=== PATIENT | male | born 1995 | race Caucasian/White ===

== ENCOUNTER 2017-10-18 13:53 | Observation (INO) ==
[2017-10-18] MEDS ORDERED: Ondansetron 4 MG/2 ML VIAL IVP ONE (14:13)
[2017-10-18] MEDS ORDERED: 0.9 % Sodium Chloride 1,000 ML IV SCH ×2 (14:15)
--- NOTE | 2017-10-18 14:29 | Emergency Department Note ---
Disposition Clinical Impression: Dehydration Diabetic ketoacidosis Qualifiers: Diabetes mellitus type: type 1 Diabetes mellitus complication detail: without coma Qualified Code(s): E10.10 - Type 1 diabetes mellitus with ketoacidosis without coma Disposition: Admitted As Inpatient Condition: Good Forms: ED Satisfaction Letter Nausea/Vomiting/Diarrhea HPI - General Chief complaint: ED Nausea/Vomiting/Diarrhea Stated complaint: "n/v,weak,high blood sugar/type 1 diabetes" Time Seen by Provider: 10/18/17 14:00 Source: patient, family Mode of arrival: private vehicle Limitations: no limitations Nursing Notes Reviewed: Yes Vital Signs Reviewed: Yes - History of Present Illness HPI Narrative: 22-year-old male history of type 1 diabetes who presents to the ER with a complaint of nausea vomiting and hyperglycemia. Mother reports 2 days of symptoms of nausea as well as inability to keep anything down. Reports that his sugar has been running over 600. Denies any recent illnesses. No fevers, cough, shortness of breath, dysuria or hematuria. No abdominal pain. No sick contacts. They have been correcting at home and still remains hyperglycemic. Reports he has never been in DKA aside from when he was originally diagnosed age of 5. No other complaints. Pt Subjective Complaint: nausea, vomiting Onset (ago): day(s) Improves with: nothing Worsens with: nonthing Associated symptoms: Reports: nausea/vomiting - Related Data Home Medications Medication Instructions Recorded Confirmed Subcutaneous Insulin Pump [T:Slim] 1 each MC AD 10/18/17 10/18/17 Allergies Allergy/AdvReac Type Severity Reaction Status Date / Time No Known Allergies Allergy Verified 10/18/17 15:00 All systems ED: reviewed and negative except as stated. Constitutional: Denies: fever Respiratory: Denies: cough, dyspnea Gastrointestinal: Reports: nausea, vomiting. Denies: abdominal pain, diarrhea Genitourinary: Denies: dysuria, frequency, hematuria Past Medical History - Past Medical History Attestation: Yes The following information was validated with the patient. Source: patient Medical history: Reports: diabetes Psychiatric history: Reports: no psych history - Social History Smoking Status: Never smoker Smokeless Tobacco Status: No Alcohol use: Reports: none Drug use: Reports: none Physical Exam - General Limitations: no limitations General appearance: alert, in no apparent distress - Head Head exam: atraumatic, normocephalic - Eye Eye exam: Present: normal appearance - ENT ENT exam: normal exam - Neck Neck exam: Present: normal inspection - Chest Chest inspection: Present: normal inspection, symmetric chest wall rise - Respiratory Respiratory exam: Present: normal lung sounds bilaterally - Cardiovascular Cardiovascular exam: Present: normal rhythm, tachycardia, normal heart sounds - Abdominal Exam Abdominal exam: Present: soft, Non-Tender. Absent: tenderness, distention, rigidity - Extremities Exam Extremities exam: Present: normal inspection, full ROM - Expanded Upper Extremity Exam Shoulder exam: Present: normal inspection, full ROM Arm exam: Present: normal inspection, full ROM Elbow exam: Present: normal inspection, full ROM Forearm/Wrist exam: Present: normal inspection, full ROM Hand exam: Present: normal inspection, full ROM - Expanded Lower Extremity Exam Hip/Pelvis exam: Present: normal inspection, full ROM Upper leg exam: Present: normal inspection, full ROM Knee exam: Present: normal inspection, full ROM Lower leg exam: Present: normal inspection, full ROM Ankle exam: Present: normal inspection, full ROM Foot/toe exam: Present: normal inspection, full ROM - Skin Skin exam: Present: warm, dry Course Course Narrative: Patient seen and examined. Vital signs reviewed. Plan for evaluation for DKA. 2 L IV fluids ordered. EKG for his tachycardia. Zofran for nausea and vomiting. - Reevaluation(s) Reevaluation #1: Discussed results of lab work with the patient's family. Resting comfortably at this time. Heart rate has improved. Agreeable with admission. Vital Signs Temperature 97.8 F 10/18/17 13:56 Pulse Rate 150 10/18/17 13:56 Respiratory Rate 18 10/18/17 13:56 Blood Pressure 154/95 10/18/17 13:56 O2 Sat by Pulse Oximetry 98 10/18/17 13:56 Temperature 97.8 F 10/18/17 14:11 Pulse Rate 150 10/18/17 14:11 Respiratory Rate 18 10/18/17 14:11 Blood Pressure 154/95 10/18/17 14:11 O2 Sat by Pulse Oximetry 98 10/18/17 14:11 Oxygen Delivery Oxygen Delivery Room Air Nausea/Vomiting/Diarrhea - MDM Narrative Medical decision making narrative: 22-year-old male presents in DKA. Hyperglycemic here with an anion gap of 13 with acidosis of 7.22. No source of infectious etiology. Initially tachycardic improved with hydration. Patient was started on insulin drip as well as dextrose containing maintenance fluids with potassium supplementation. He is admitted to the hospital service in stable condition. - Lab Data Lab results reviewed: Yes I reviewed the patient's lab results. Result diagrams: 10/18/17 14:23 10/18/17 14:23 Lab Results 10/18/17 10/18/17 10/18/17 Range/Units 14:23 14:23 14:23 WBC 23.6 H (4.3-11.1) K/mcL RBC 5.66 H (4.19-5.50) M/mcL Hgb 17.9 H (12.9-16.9) g/dL Hct 50.7 H (37.5-50.1) % MCV 89.6 (83.0-100.0) fL MCH 31.6 (28.0-33.3) pg MCHC 35.3 (31.6-35.5) g/dL RDW 12.1 (11.5-14.5) % Plt Count 408 H (140-400) K/mcL MPV 12.0 (9.4-12.4) fL VBG pH (7.32-7.42) pH Units VBG pCO2 (41-51) mmHg VBG pO2 (25-50) mmHg VBG HCO3 (21-27) mEq/L Sodium 128 L (136-145) mEq/L Potassium 4.6 (3.5-5.1) mEq/L Chloride 102 (98-107) mEq/L Carbon Dioxide 13 L (23-29) mEq/L BUN 26 H (6-20) mg/dL Creatinine 1.53 H (0.70-1.30) mg/dL Est GFR ( Amer) > 60 (> 60) Est GFR (Non-Af Amer) 57 L (> 60) BUN/Creatinine Ratio 17 (6-26) Glucose 311 H (70-105) mg/dL Calculated Osmolality 283 (280-300) Calcium 10.7 H (8.6-10.3) mg/dL Total Bilirubin (0.3-1.0) mg/dL Direct Bilirubin (0.0-0.2) mg/dL Indirect Bilirubin (0.0-1.2) mg/dL AST (13-39) Units/L ALT (7-52) Units/L Alkaline Phosphatase (34-104) Units/L Serum Total Protein (6.4-8.9) g/dL Albumin (3.5-5.7) g/dL Globulin (2.4-3.5) g/dL Albumin/Globulin Ratio (1.1-2.2) Lipase (11-82) Units/L Beta-Hydroxybutyric Acd > 2.00 H (0.02-0.27) mmol/L 10/18/17 10/18/17 Range/Units 14:23 14:51 WBC (4.3-11.1) K/mcL RBC (4.19-5.50) M/mcL Hgb (12.9-16.9) g/dL Hct (37.5-50.1) % MCV (83.0-100.0) fL MCH (28.0-33.3) pg MCHC (31.6-35.5) g/dL RDW (11.5-14.5) % Plt Count (140-400) K/mcL MPV (9.4-12.4) fL VBG pH 7.22 L (7.32-7.42) pH Units VBG pCO2 31 L (41-51) mmHg VBG pO2 59 H (25-50) mmHg VBG HCO3 13 L (21-27) mEq/L Sodium (136-145) mEq/L Potassium (3.5-5.1) mEq/L Chloride (98-107) mEq/L Carbon Dioxide (23-29) mEq/L BUN (6-20) mg/dL Creatinine (0.70-1.30) mg/dL Est GFR ( Amer) (> 60) Est GFR (Non-Af Amer) (> 60) BUN/Creatinine Ratio (6-26) Glucose (70-105) mg/dL Calculated Osmolality (280-300) Calcium (8.6-10.3) mg/dL Total Bilirubin 0.6 (0.3-1.0) mg/dL Direct Bilirubin 0.1 (0.0-0.2) mg/dL Indirect Bilirubin 0.5 (0.0-1.2) mg/dL AST 10 L (13-39) Units/L ALT 10 (7-52) Units/L Alkaline Phosphatase 105 H (34-104) Units/L Serum Total Protein 9.0 H (6.4-8.9) g/dL Albumin 5.5 (3.5-5.7) g/dL Globulin 3.5 (2.4-3.5) g/dL Albumin/Globulin Ratio 1.6 (1.1-2.2) Lipase 131 H (11-82) Units/L Beta-Hydroxybutyric Acd (0.02-0.27) mmol/L - Radiology Data Radiology results reviewed: Yes I reviewed the patient's radiology results. Chest X-Ray 10/18/17 14:10 IMPRESSION: No acute abnormality. D/ / Corky Ward MD / Corky Ward MD Interpreting Provider: Corky Ward MD - EKG Data EKG attestation: Yes I reviewed and interpreted this EKG. EKG results narrative: EKG demonstrates sinus tachycardia with a rate of 128. Normal axis. Normal intervals. Normal R-wave progression. Nonspecific ST-T wave changes inferiorly. No gross ST elevations or depressions. No acute ischemic findings. S.B.A.Gerardo - Shakeel.[email or web address] Situation: Demographics, MOA Background: Presenting Complaint, Relevant PMH, Meds, & Allergies Assessment: Vital Signs, Course and respsone to treatment, Exam Concerns, Patient/Family Expectation, Pertinant Lab Results Recommendation: Barrier(s) to disposition, Recommendation based on pending studies, treatments, or consults S.B.A.RRiver Report Given to: Dr. Eitan BaumanALianet Repor Time: 15:18 Attestation Statement - Attestation Attestation: I, Farooq Nicolas DO, examined this patient [id number] and my medical decision-making was reviewed with Dr. Odin Mckay, Resident Physician. I agree with the documented findings, disposition and treatment plan as described except to the extent set forth below. Please see my progress notes for details.
[2017-10-18] MEDS ORDERED: 0.9 % Sodium Chloride 1,000 ML ONE (14:31)
[2017-10-18 14:39] LABS: Hematocrit 50.7 % (37.5-50.1); Hemoglobin 17.9 g/dL (12.9-16.9); Mean Corpuscular HGB Conc 35.3 g/dL (31.6-35.5); Mean Corpuscular Hemoglobin 31.6 pg (28.0-33.3); Mean Corpuscular Volume 89.6 fL (83.0-100.0); Platelet Count 408 K/mcL (140-400); Red Blood Count 5.66 M/mcL (4.19-5.50); Red Cell Distribution Width 12.1 % (11.5-14.5)
[2017-10-18] MEDS: 0.9 % Sodium Chloride 1,000 ML IVC SCH ×2 (14:39→15:15)
--- NOTE | 2017-10-18 14:55 | Emergency Department Note ---
Disposition Clinical Impression: Dehydration, Diabetic ketoacidosis Disposition: Admitted As Inpatient Condition: Fair Forms: ED Satisfaction Letter Time of Disposition: 15:14 General Adult HPI - General Chief complaint: ED Nausea/Vomiting/Diarrhea Stated complaint: "n/v,weak,high blood sugar/type 1 diabetes" Time Seen by Provider: 10/18/17 14:00 Source: patient, family Mode of arrival: private vehicle Limitations: no limitations - History of Present Illness Pain Scale: 0 - Related Data Home Medications Medication Instructions Recorded Confirmed Subcutaneous Insulin Pump [T:Slim] 1 each MC AD 10/18/17 10/18/17 Allergies Allergy/AdvReac Type Severity Reaction Status Date / Time No Known Allergies Allergy Verified 10/18/17 15:00 Constitutional: Denies: fever Respiratory: Denies: cough, dyspnea Gastrointestinal: Reports: nausea, vomiting. Denies: abdominal pain, diarrhea Genitourinary: Denies: dysuria, frequency, hematuria Past Medical History - Past Medical History Medical history: Reports: diabetes Psychiatric history: Reports: no psych history - Social History Smoking Status: Never smoker Smokeless Tobacco Status: No Alcohol use: Reports: none Drug use: Reports: none Physical Exam - General Limitations: no limitations General appearance: alert, in no apparent distress Course Vital Signs Temperature 97.8 F 10/18/17 13:56 Pulse Rate 150 10/18/17 13:56 Respiratory Rate 18 10/18/17 13:56 Blood Pressure 154/95 10/18/17 13:56 O2 Sat by Pulse Oximetry 98 10/18/17 13:56 Temperature 97.8 F 10/18/17 14:11 Pulse Rate 150 10/18/17 14:11 Respiratory Rate 18 10/18/17 14:11 Blood Pressure 154/95 10/18/17 14:11 O2 Sat by Pulse Oximetry 98 10/18/17 14:11 Oxygen Delivery Oxygen Delivery Room Air Critical Care Time Critical Care Time: Yes Total Critical Care Time: 35 Attestation: Critical care performed: Time is exclusive of separately billable procedures. Time includes: direct patient care, patient reassessment, coordination of patient care, interpretation of data (laboratory data, radiology data, and respiratory data), review of patient's medical records, medical consultation and documentation of patient care. Procedures included in critical care time: Procedures excluded from critical care time: Attestation Statement - Attestation Attestation: I, Farooq Nicolas DO, examined this patient [id number] and my medical decision-making was reviewed with Dr. Odin Mckay, Resident Physician. I agree with the documented findings, disposition and treatment plan as described except to the extent set forth below. Please see my progress notes for details. 22-year-old male presents emergency room for evaluation of increased work of breathing, tachycardia, poorly controlled glucose. Patient was concerned about diabetic ketoacidosis. His had happen several times in the past. 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 He denies any fevers or chills denies any chest pain shortness of breath headache vision changes nausea vomiting or diarrhea outside of the nausea that is experienced since starting with DKA. Patient has not had any illnesses he has not had any other medication changes except for the insulin pump. Patient is concerning of physical exam for dehydration. His heart rate was 150 his respirations were the 25-30 breaths per minute range. Patient is alert he is oriented falls commands is atraumatic his pupils are equal round reactive his oropharynx is patent mucous membranes are dry. Lungs are clear heart is regular but tachycardic. Abdomen is soft nontender nondistended. Patient will have DKA protocol started this time a CBC chemistry serum ketones VBG and urinalysis. Fluid resuscitation will be started along with evaluation for infectious etiology. Patient otherwise clinically stable this point despite having medically concerning presentation. We will continue to monitor here until treatment course is completed. See detailed documentation of the physical exam , medical intervention, medical decision-making and disposition in the resident physician's note. No critical care provider the patient's treatment course at this time. 1445 Patient meets the criteria for diabetic ketoacidosis at this point with a elevated glucose of 311, a VBG of 7.2, ketones in his blood, decreased bicarbonate levels. Insulin drip fluid resuscitation potassium and D5 half- normal saline will be started this time to protect patient going hypoglycemic. Admission process will be completed once the full workup and evaluation have been established 1500 The patient was discussed with the hospitalist . No other recommendations or concerns this time. Patient is otherwise clinically stable. Admission process will be established.
[2017-10-18 14:56] LABS: Albumin 5.5 g/dL (3.5-5.7); Albumin/Globulin Ratio 1.6 (1.1-2.2); BUN/Creatinine Ratio 17 (6-26); Bilirubin,Direct 0.1 mg/dL (0.0-0.2); Bilirubin,Indirect 0.5 mg/dL (0.0-1.2); Bilirubin,Total 0.6 mg/dL (0.3-1.0); Blood Urea Nitrogen 26 mg/dL (6-20); Calcium 10.7 mg/dL (8.6-10.3); Carbon Dioxide 13 mEq/L (23-29); Chloride 102 mEq/L (98-107); Globulin 3.5 g/dL (2.4-3.5); Glucose 311 mg/dL (70-105); Osmolality,Calculated 283 (280-300); Potassium 4.6 mEq/L (3.5-5.1); Sodium 128 mEq/L (136-145); eGFR For Non-African Americans 57 (> 60)
[2017-10-18 14:58] LABS: VBG HCO3 13 mEq/L (21-27); VBG PCO2 31 mmHg (41-51); VBG PH 7.22 pH Units (7.32-7.42); VBG PO2 59 mmHg (25-50)
[2017-10-18] MEDS ORDERED: *HR* Dextrose 50 % in Water (Syg) 50 ML SYRINGE IVP PRN (15:03)
[2017-10-18 15:20] LABS: Lymphocytes # 0.9 K/mcL (0.6-4.6); Monocytes # 0.5 K/mcL (0.0-1.3); Neutrophils # 22.2 K/mcL (1.6-8.9); Platelet Estimate Normal (Normal)
[2017-10-18] MEDS ORDERED: Naloxone 0.4 MG/ML INJ IVP PRN (15:23)
--- NOTE | 2017-10-18 15:56 | Internal Med History&Physical ---
Date of Encounter: 10/18/17 Time of Encounter: 15:40 Internal Medicine - H&P: HPI Chief complaint: Nausea, vomiting and fatigue for about 2 days Admitted From: Home Plans for Post Hospital Care: Home History of present illness: Mr. Ramirez is a 22 year old male with pmh of type 1 diabetes on an insulin pump since age presenting with complaints of nausea, vomiting andfatigue of about 2 days duration. Patient notes he has also been having high blood sugars at home. He complains of feeling tired, dehydrated and with the nausea and vomtingg not resolving decided to come to the ED. he denies any fevers, chills , coughing , shortness of breat or any other acute symptoms. In the ER, his blood sugar was elevated and he was noted to have a low bicarb as well as ketone bodies in the urine. He was started on an insulin drip and will be admitted for further management of DKA Past Med Surg Social Fam HX - Past Medical History Medical history: diabetes Psychiatric history: no psych history - Social History Smoking Status: Never smoker Smokeless Tobacco Status: No Alcohol use: none Drug use: none Internal Medicine - H&P: Meds Subcutaneous Insulin Pump [T:Slim] 1 each MC AD 10/18/17 [History] 3 Allergy/AdvReac Type Severity Reaction Status Date / Time No Known Allergies Allergy Verified 10/18/17 15:00 All Systems PM: A 10-system review of systems was performed and is negative for pertinent findings except as documented above in the HPI. - Constitutional Constitutional: fatigue, no chills, no fever(s), no night sweats - EENT Eyes: no change in vision, no discharge, no pain, no photophobia Ears: no ear discharge, no ear pain, no tinnitus Nose, mouth and throat: no dysphagia, no nasal discharge, no neck pain, no sore throat - Cardiovascular Cardiovascular ROS IM: no chest pain, no diaphoresis, no dyspnea, no lightheadedness, no palpitations, no syncope - Respiratory Respiratory: no cough, no dyspnea, no wheezing, no excessive phlegm production - Gastrointestinal Gastrointestinal: nausea, vomiting, no abdominal pain, no diarrhea, no hematemesis, no hematochezia, no melena - Musculoskeletal Musculoskeletal ROS IM: no numbness, no tingling - Integumentary Integumentary IM: no rash, no unusual bruising - Neurological Neurological ROS: no confusion, no convulsions, no focal weakness, no numbness, no tingling, no tremor(s) - Hematologic/Lymphatic Hematologic/Lymphatic: no easy bruising - Constitutional Vitals: Temp Pulse Resp BP Pulse Ox 97.8 F 150 18 154/95 98 10/18/17 14:11 10/18/17 14:11 10/18/17 14:11 10/18/17 14:11 10/18/17 14:11 Exam: appears lethargic - Head Head exam: Present: atraumatic, normocephalic - Eye Eye exam: Present: PERRL, conjuntiva pink, sclera anicteric Pupils: Present: PERRL - Neck Neck exam general surgery: Present: supple, trachea midline. Absent: lymphadenopathy - Respiratory Respiratory exam: Present: CTAB. Absent: accessory muscle use, rales, rhonchi, wheezes - Cardiovascular Cardiovascular exam: Present: RRR, +S1, +S2. Absent: diastolic murmur, gallop, rubs, systolic murmur - GI/Abdominal GI/Abdominal exam: Present: normal bowel sounds, soft, no peritoneal signs. Absent: distended, tenderness - Extremities Exam Extremities exam: Present: warm, radial pulses palpable and symmetrical. Absent : calf tenderness, cyanotic, pedal edema - Neurological Exam Neurological exam: Present: CN II-XII intact, oriented X3, no focal deficits. Absent: pronater drift, facial droop, speech deficit - Skin Skin exam: Present: dry, intact Internal Med - H&P Results - Labs CBC & Chem 7: 10/18/17 14:23 10/18/17 14:23 Labs: Short CBC 10/18/17 Range/Units 14:23 WBC 23.6 H (4.3-11.1) K/mcL Hgb 17.9 H (12.9-16.9) g/dL Hct 50.7 H (37.5-50.1) % Plt Count 408 H (140-400) K/mcL Neutrophils # 22.2 H (1.6-8.9) K/mcL BMP 10/18/17 14:23 Sodium 128 L Potassium 4.6 Chloride 102 Carbon Dioxide 13 L BUN 26 H Creatinine 1.53 H Glucose 311 H Calcium 10.7 H Liver Function 10/18/17 Range/Units 14:23 Total Bilirubin 0.6 (0.3-1.0) mg/dL Direct Bilirubin 0.1 (0.0-0.2) mg/dL AST 10 L (13-39) Units/L ALT 10 (7-52) Units/L Alkaline Phosphatase 105 H (34-104) Units/L Albumin 5.5 (3.5-5.7) g/dL - ABG Interpretation ABG results: 10/18/17 14:51 VBG pH 7.22 L VBG pCO2 31 L VBG pO2 59 H VBG HCO3 13 L - Impressions ITS Impressions Chest X-Ray 10/18/17 14:10 IMPRESSION: No acute abnormality. D/ / Corky Ward MD / Corky Ward MD Interpreting Provider: Corky Ward MD - Assessment and plan (1) Diabetic ketoacidosis Current Visit: Yes Status: Acute Assessment and plan: Pt has 2 day history of nausea, vomiting and elevated blood sugars at home. Had increased anion gap, low bicarb and elevated beta hydroxybutyric acid. Will start on an insulin drip and monitor BMP according to DKA protocol. Transition off insulin drip to subcutaneous insulin as tolerated Qualifiers: Diabetes mellitus type: type 1 Diabetes mellitus complication detail: without coma Qualified Code(s): E10.10 - Type 1 diabetes mellitus with ketoacidosis without coma (2) Acute kidney injury Current Visit: Yes Status: Acute Assessment and plan: Creatinine noted to be 1.53. Will give IV fluids and monitor BMP (3) Leukocytosis Current Visit: Yes Status: Acute Assessment and plan: Leukocytosis r/o sepsis. No clear source of infection may be secondary to hemoconcentration vs infection. Will start empirically on levaquin and obtain blood cultures, urinalysis Qualifiers: Qualified Code(s): D72.829 - Elevated white blood cell count, unspecified (4) Hyponatremia Current Visit: Yes Status: Acute Assessment and plan: Likely secondary to dehydration, will give IV fluids and monitor sodium levels (5) Dehydration Current Visit: Yes Status: Acute Assessment and plan: IV fluids (6) DVT prophylaxis Current Visit: Yes Status: Acute Assessment and plan: Heparin sc - Time Spent With Patient Total time spent is greater than 50% in coordination of care (as documented) at patient's floor/unit and/or counseling patient:
[2017-10-18] MEDS: D5% in 0.45% NACL w KCl 20 MEQ/1,000 ML MLS IVC SCH ×2 (16:00→20:28)
[2017-10-18] MEDS: Insulin Human Regular 100 UNIT in 0.9 % Sodium Chloride 100 ML IVC SCH ×2 (16:01→20:25)
[2017-10-18] MEDS: Levofloxacin 750 MG/150 ML 750 MG/150 ML BAG IVPB SCH (17:23)
[2017-10-18] MEDS: *HR* Heparin 5,000 UNIT/ML VIAL SQ SCH (21:34)
[2017-10-18 23:00] LABS: VBG HCO3 17 mEq/L (21-27); VBG PCO2 36 mmHg (41-51); VBG PH 7.28 pH Units (7.32-7.42); VBG PO2 160 mmHg (25-50)
[2017-10-18 23:17] LABS: BUN/Creatinine Ratio 18 (6-26); Blood Urea Nitrogen 19 mg/dL (6-20); Calcium 9.5 mg/dL (8.6-10.3); Carbon Dioxide 16 mEq/L (23-29); Chloride 110 mEq/L (98-107); Glucose 121 mg/dL (70-105); Osmolality,Calculated 284 (280-300); Potassium 3.7 mEq/L (3.5-5.1); Sodium 135 mEq/L (136-145); eGFR For Non-African Americans > 60 (> 60)
[2017-10-19] MEDS: D5% in 0.45% NACL w KCl 20 MEQ/1,000 ML MLS IVC SCH ×4 (01:00→23:44)
[2017-10-19 01:54] LABS: Basophils % 0.1 %; Hematocrit 42.4 % (37.5-50.1); Hemoglobin 14.7 g/dL (12.9-16.9); Immature Granulocytes % 0.2 % (0-4); Immature Platelets 8.6 % (1.1-6.1); Lymphocytes # 1.2 K/mcL (0.6-4.6); Lymphocytes % 8.7 %; Mean Corpuscular HGB Conc 34.7 g/dL (31.6-35.5); Mean Corpuscular Hemoglobin 31.1 pg (28.0-33.3); Mean Corpuscular Volume 89.6 fL (83.0-100.0); Mean Platelet Volume 11.9 fL (9.4-12.4); Monocytes # 0.8 K/mcL (0.0-1.3); Monocytes % 5.5 %; Platelet Count 280 K/mcL (140-400); Red Blood Count 4.73 M/mcL (4.19-5.50); Red Cell Distribution Width 12.4 % (11.5-14.5); Segmented Neutrophils % 85.5 %
[2017-10-19 01:55] LABS: VBG HCO3 12 mEq/L (21-27); VBG PCO2 28 mmHg (41-51); VBG PH 7.25 pH Units (7.32-7.42); VBG PO2 65 mmHg (25-50)
[2017-10-19 02:17] LABS: BUN/Creatinine Ratio 16 (6-26); Blood Urea Nitrogen 17 mg/dL (6-20); Calcium 9.3 mg/dL (8.6-10.3); Carbon Dioxide 12 mEq/L (23-29); Chloride 107 mEq/L (98-107); Glucose 269 mg/dL (70-105); Osmolality,Calculated 283 (280-300); Phosphorous 1.6 mg/dL (2.7-4.5); Potassium 4.9 mEq/L (3.5-5.1); Sodium 131 mEq/L (136-145); eGFR For Non-African Americans > 60 (> 60)
[2017-10-19] MEDS: *HR* Heparin 5,000 UNIT/ML VIAL SQ SCH ×3 (05:16→23:45)
[2017-10-19 05:54] LABS: VBG HCO3 15 mEq/L (21-27); VBG PCO2 29 mmHg (41-51); VBG PH 7.32 pH Units (7.32-7.42); VBG PO2 202 mmHg (25-50)
[2017-10-19 06:10] LABS: BUN/Creatinine Ratio 13 (6-26); Blood Urea Nitrogen 13 mg/dL (6-20); Calcium 9.3 mg/dL (8.6-10.3); Carbon Dioxide 15 mEq/L (23-29); Chloride 107 mEq/L (98-107); Glucose 193 mg/dL (70-105); Osmolality,Calculated 283 (280-300); Sodium 134 mEq/L (136-145); eGFR For Non-African Americans > 60 (> 60)
[2017-10-19] MEDS: Levofloxacin 750 MG/150 ML 750 MG/150 ML BAG IVPB SCH (08:01)
[2017-10-19] MEDS ORDERED: Insulin DETEMIR 100 UNIT/ML X5UNITS SQ ONE (09:44)
--- NOTE | 2017-10-19 09:51 | Internal Med Progress Note ---
Hospitalist Progress Note - Encounter Date of Encounter: 10/19/17 Time of Encounter: 09:45 - Subjective Interval History: No acute events overnight - Exam Vitals: Temp Pulse Resp BP Pulse Ox 97.8 F 104 16 135/86 99 10/19/17 07:43 10/19/17 07:43 10/19/17 07:43 10/19/17 07:43 10/19/17 07:43 Exam: Gen - Awake, alert, oriented x 3, no acute distress HEENT - NCAT, PERRLA, EOMI, hearing grossly intact, oropharynx benign CV - RRR, normal S1 and S2, no M/R/G, no BLE edema Resp - Normal WOB, CTAB, no W/R/R GI - Soft, NT/ND, no masses, normal bowel sounds, no HSP Skin - Warm, dry, no rashes/lesions/ulcers Psych - Normal mood and affect, no depression or anxiety - Assessment and Plan (1) Diabetic ketoacidosis Current Visit: Yes Status: Acute Assessment and Plan: Pt has 2 day history of nausea, vomiting and elevated blood sugars at home. Had increased anion gap, low bicarb and elevated beta hydroxybutyric acid. Will start on an insulin drip and monitor BMP according to DKA protocol. 10/19 Will transition off insulin drip to subcutaneous insulin and advance diet (2) Acute kidney injury Current Visit: Yes Status: Acute Assessment and Plan: Creatinine noted to be 1.53. Will give IV fluids and monitor BMP (3) Leukocytosis Current Visit: Yes Status: Acute Assessment and Plan: Leukocytosis r/o sepsis. No clear source of infection may be secondary to hemoconcentration vs infection. Will start empirically on levaquin and obtain blood cultures, urinalysis (4) Hyponatremia Current Visit: Yes Status: Acute Assessment and Plan: Likely secondary to dehydration, will give IV fluids and monitor sodium levels. Improving (5) Dehydration Current Visit: Yes Status: Acute Assessment and Plan: IV fluids (6) DVT prophylaxis Current Visit: Yes Status: Acute Assessment and Plan: Heparin sc - Time Spent with Patient Total time spent is greater than 50% in coordination of care (as documented) at patient's floor/unit and/or counseling patient: Internal Medicine: Result - Labs CBC & Chem 7: 10/19/17 01:57 10/19/17 10:21 Labs: Short CBC 10/19/17 Range/Units 01:57 WBC 14.1 H (4.3-11.1) K/mcL Hgb 14.7 D (12.9-16.9) g/dL Hct 42.4 (37.5-50.1) % Plt Count 280 (140-400) K/mcL Neutrophils # 12.0 H (1.6-8.9) K/mcL BMP 10/18/17 10/19/17 10/19/17 22:21 01:57 05:41 Sodium 135 L 131 L 134 L Potassium 3.7 4.9 D 4.0 Chloride 110 H 107 107 Carbon Dioxide 16 L 12 L 15 L BUN 19 17 13 Creatinine 1.03 1.06 1.01 Glucose 121 H 269 H 193 H Calcium 9.5 9.3 9.3 Consult Discharge Plan - Plan Referrals: Bernadette Blanca DO [Primary Care Provider] - (1) Diabetic ketoacidosis Qualifiers: Diabetes mellitus type: type 1 Diabetes mellitus complication detail: without coma Qualified Code(s): E10.10 - Type 1 diabetes mellitus with ketoacidosis without coma
[2017-10-19] MEDS ORDERED: Insulin DETEMIR 100 UNIT/ML X5UNITS SQ SCH (10:00)
[2017-10-19 10:33] LABS: VBG HCO3 17 mEq/L (21-27); VBG PCO2 34 mmHg (41-51); VBG PH 7.31 pH Units (7.32-7.42); VBG PO2 113 mmHg (25-50)
[2017-10-19 10:50] LABS: BUN/Creatinine Ratio 10 (6-26); Blood Urea Nitrogen 10 mg/dL (6-20); Calcium 9.3 mg/dL (8.6-10.3); Carbon Dioxide 17 mEq/L (23-29); Chloride 103 mEq/L (98-107); Glucose 352 mg/dL (70-105); Osmolality,Calculated 287 (280-300); Potassium 4.3 mEq/L (3.5-5.1); Sodium 132 mEq/L (136-145); eGFR For Non-African Americans > 60 (> 60)
[2017-10-19] MEDS ORDERED: *HR* Dextrose 50 % in Water (Syg) 50 ML SYRINGE IVP PRN ×2 (11:44→19:38)
[2017-10-19] MEDS ORDERED: Dextrose Gel 15 GM/37.5 ML TUBE PO PRN ×2 (11:44)
[2017-10-19] MEDS ORDERED: D5% in Water 1,000 ML IVC PRN (11:44)
[2017-10-19] MEDS ORDERED: Acetaminophen 325 MG TABLET PO PRN (14:09)
[2017-10-19] MEDS: Ondansetron 4 MG/2 ML VIAL IVP PRN ×2 (16:13→19:23)
[2017-10-19] MEDS ORDERED: Insulin LISPRO 300 UNITS/3 ML VIAL SQ SCH ×2 (16:30→21:00)
[2017-10-19 16:52] LABS: BUN/Creatinine Ratio 10 (6-26); Blood Urea Nitrogen 10 mg/dL (6-20); Calcium 9.5 mg/dL (8.6-10.3); Carbon Dioxide 13 mEq/L (23-29); Chloride 98 mEq/L (98-107); Glucose 460 mg/dL (70-105); Osmolality,Calculated 291 (280-300); Potassium 4.5 mEq/L (3.5-5.1); Sodium 131 mEq/L (136-145); eGFR For Non-African Americans > 60 (> 60)
[2017-10-19] MEDS ORDERED: Insulin Human Regular 100 UNIT in 0.9 % Sodium Chloride 100 ML IVC SCH (19:45)
[2017-10-19] MEDS ORDERED: 0.9 % Sodium Chloride 1,000 ML ONE (20:58)
[2017-10-19] MEDS ORDERED: 0.45 % Sodium Chloride w/KCl 20 MEQ/1,000 ML MLS IVC SCH (21:15)
[2017-10-19 21:36] LABS: VBG HCO3 19 mEq/L (21-27); VBG PCO2 34 mmHg (41-51); VBG PH 7.34 pH Units (7.32-7.42); VBG PO2 143 mmHg (25-50)
[2017-10-19 21:46] LABS: BUN/Creatinine Ratio 11 (6-26); Blood Urea Nitrogen 10 mg/dL (6-20); Calcium 9.7 mg/dL (8.6-10.3); Carbon Dioxide 17 mEq/L (23-29); Chloride 103 mEq/L (98-107); Glucose 241 mg/dL (70-105); Osmolality,Calculated 289 (280-300); Potassium 4.1 mEq/L (3.5-5.1); Sodium 136 mEq/L (136-145); eGFR For Non-African Americans > 60 (> 60)
[2017-10-20 01:25] LABS: BUN/Creatinine Ratio 11 (6-26); Blood Urea Nitrogen 10 mg/dL (6-20); Calcium 9.4 mg/dL (8.6-10.3); Carbon Dioxide 21 mEq/L (23-29); Chloride 106 mEq/L (98-107); Glucose 182 mg/dL (70-105); Osmolality,Calculated 288 (280-300); Potassium 3.8 mEq/L (3.5-5.1); Sodium 137 mEq/L (136-145); eGFR For Non-African Americans > 60 (> 60)
[2017-10-20] MEDS ORDERED: Insulin DETEMIR 100 UNIT/ML X5UNITS SQ ONE (02:05)
[2017-10-20] MEDS: D5% in 0.45% NACL w KCl 20 MEQ/1,000 ML MLS IVC SCH (03:54)
[2017-10-20] MEDS: *HR* Heparin 5,000 UNIT/ML VIAL SQ SCH (04:51)
[2017-10-20 05:39] LABS: Basophils % 0.2 %; Eosinophils % 0.1 %; Immature Granulocytes % 0.2 % (0-4); Lymphocytes # 1.9 K/mcL (0.6-4.6); Lymphocytes % 20.9 %; Mean Corpuscular HGB Conc 35.6 g/dL (31.6-35.5); Mean Corpuscular Hemoglobin 31.5 pg (28.0-33.3); Mean Corpuscular Volume 88.6 fL (83.0-100.0); Mean Platelet Volume 12.6 fL (9.4-12.4); Monocytes # 0.7 K/mcL (0.0-1.3); Monocytes % 8.2 %; Neutrophils # 6.3 K/mcL (1.6-8.9); Platelet Count 257 K/mcL (140-400); Red Blood Count 4.63 M/mcL (4.19-5.50); Red Cell Distribution Width 12.4 % (11.5-14.5); Segmented Neutrophils % 70.4 %
[2017-10-20 05:41] LABS: Hemoglobin 14.6 g/dL (12.9-16.9)
[2017-10-20 05:57] LABS: BUN/Creatinine Ratio 10 (6-26); Blood Urea Nitrogen 9 mg/dL (6-20); Calcium 9.1 mg/dL (8.6-10.3); Carbon Dioxide 23 mEq/L (23-29); Chloride 106 mEq/L (98-107); Glucose 105 mg/dL (70-105); Osmolality,Calculated 283 (280-300); Potassium 3.5 mEq/L (3.5-5.1); Sodium 137 mEq/L (136-145); eGFR For Non-African Americans > 60 (> 60)
[2017-10-20 05:58] LABS: Magnesium 1.8 mg/dL (1.6-2.6); Phosphorous 1.2 mg/dL (2.7-4.5)
[2017-10-20] MEDS ORDERED: D5% in Water 1,000 ML IVC PRN (06:19)
[2017-10-20] MEDS ORDERED: Dextrose Gel 15 GM/37.5 ML TUBE PO PRN ×2 (06:19)
[2017-10-20] MEDS: Insulin LISPRO 300 UNITS/3 ML VIAL SQ SCH ×2 (09:55→11:27)
[2017-10-20] MEDS: Levofloxacin 750 MG/150 ML 750 MG/150 ML BAG IVPB SCH (09:56)
--- NOTE | 2017-10-20 10:25 | Internal Med Progress Note ---
Hospitalist Progress Note - Encounter Date of Encounter: 10/20/17 Time of Encounter: 10:30 - Subjective Interval History: No acute events overnight - Exam Vitals: Temp Pulse Resp BP Pulse Ox 99.0 F 92 18 147/88 97 10/20/17 07:56 10/20/17 07:56 10/20/17 07:56 10/20/17 07:56 10/20/17 07:56 Exam: Gen - Awake, alert, oriented x 3, no acute distress HEENT - NCAT, PERRLA, EOMI, hearing grossly intact, oropharynx benign CV - RRR, normal S1 and S2, no M/R/G, no BLE edema Resp - Normal WOB, CTAB, no W/R/R GI - Soft, NT/ND, no masses, normal bowel sounds, no HSP Skin - Warm, dry, no rashes/lesions/ulcers Psych - Normal mood and affect, no depression or anxiety - Assessment and Plan (1) Diabetic ketoacidosis Current Visit: Yes Status: Acute Assessment and Plan: Pt has 2 day history of nausea, vomiting and elevated blood sugars at home. Had increased anion gap, low bicarb and elevated beta hydroxybutyric acid. Will start on an insulin drip and monitor BMP according to DKA protocol. 10/20 Was transitioned off insulin drip on 10/19 butwent back into DKA and drip was restarted last night. Was succesfully transitioned to subcutaneous insulin overnight. Anion gap this am is 8. Will advance diet. Patient is not an insulin pum p and it appears insulin pump is not functional at this time. Will attempt in coordination with family and diabetes educators and outpatient to see if pump is working which was recently replaced last week . If pump cannot be safely ascertained that it is working, will need to discharge on subcuateneous levemir and novolog and follow up with outpatient endocirinologist (2) Acute kidney injury Current Visit: Yes Status: Acute Assessment and Plan: Creatinine noted to be 1.53. Will give IV fluids and monitor BMP (3) Leukocytosis Current Visit: Yes Status: Acute Assessment and Plan: Leukocytosis r/o sepsis. No clear source of infection may be secondary to hemoconcentration vs infection. Will start empirically on levaquin and obtain blood cultures, urinalysis (4) Hyponatremia Current Visit: Yes Status: Acute Assessment and Plan: Likely secondary to dehydration, will give IV fluids and monitor sodium levels. Improving (5) Dehydration Current Visit: Yes Status: Acute Assessment and Plan: IV fluids (6) DVT prophylaxis Current Visit: Yes Status: Acute Assessment and Plan: Heparin sc - Time Spent with Patient Total time spent is greater than 50% in coordination of care (as documented) at patient's floor/unit and/or counseling patient: Internal Medicine: Result - Labs CBC & Chem 7: 10/20/17 04:52 10/20/17 04:52 Labs: Short CBC 10/20/17 Range/Units 04:52 WBC 8.9 (4.3-11.1) K/mcL Hgb 14.6 (12.9-16.9) g/dL Hct 41.0 (37.5-50.1) % Plt Count 257 (140-400) K/mcL Neutrophils # 6.3 (1.6-8.9) K/mcL BMP 10/19/17 10/19/17 10/19/17 10:21 16:05 20:50 Sodium 132 L 131 L 136 Potassium 4.3 4.5 4.1 Chloride 103 98 103 Carbon Dioxide 17 L 13 L 17 L BUN 10 10 10 Creatinine 0.99 0.99 0.94 Glucose 352 H 460 H 241 H Calcium 9.3 9.5 9.7 10/20/17 10/20/17 00:35 04:52 Sodium 137 137 Potassium 3.8 3.5 Chloride 106 106 Carbon Dioxide 21 L 23 BUN 10 9 Creatinine 0.93 0.86 Glucose 182 H 105 Calcium 9.4 9.1 Consult Discharge Plan - Plan Referrals: Sloan Farley DO [Resident] - 10/27/17 3:15 pm (1) Diabetic ketoacidosis Qualifiers: Diabetes mellitus type: type 1 Diabetes mellitus complication detail: without coma Qualified Code(s): E10.10 - Type 1 diabetes mellitus with ketoacidosis without coma
[2017-10-20 11:35] VITALS: BP 141/93
[2017-10-20] MEDS ORDERED: SUBCUTANEOUS INSULIN PUMP MC SCH (12:45)
[2017-10-20 14:16] LABS: BUN/Creatinine Ratio 13 (6-26); Blood Urea Nitrogen 10 mg/dL (6-20); Calcium 9.5 mg/dL (8.6-10.3); Carbon Dioxide 22 mEq/L (23-29); Chloride 100 mEq/L (98-107); Glucose 218 mg/dL (70-105); Osmolality,Calculated 284 (280-300); Potassium 3.3 mEq/L (3.5-5.1); Sodium 134 mEq/L (136-145); eGFR For Non-African Americans > 60 (> 60)
--- NOTE | 2017-10-20 15:16 | Electrocardiograph Report ---
[address] [address] Test Date: 2017-10-18 Pat Name: Venkatesh Ramirez Department: Room: 05 Gender: M Prepress Operator: : [id number] Requested By: Odin Mckay Order Number: [id number] Reading MD: Travis Beck Measurements Intervals Hawkins Rate: 128 P: 74 MT: 136 QRS: 85 QRSD: 85 T: -43 QT: 277 QTc: 405 Interpretive Statements Sinus tachycardia LAE, consider biatrial enlargement Nonspecific T abnormalities, inferior leads Electronically Signed On 10-20-2017 15:15:22 EDT by Travis Beck
--- NOTE | 2017-10-20 15:24 | Discharge Summary ---
Date of Encounter: 10/20/17 Time of Encounter: 15:00 - Discharge Diagnosis (1) Diabetic ketoacidosis Priority: Primary Status: Acute Assessment and Plan: Mr. Ramirez is a 22 year old male with pmh of type 1 diabetes on an insulin pump since age 10 presenting with complaints of nausea, vomiting andfatigue of about 2 days duration. Patient notes he has also been having high blood sugars at home. He complains of feeling tired, dehydrated and with the nausea and vomiting not resolving decided to come to the ED. He denies any fevers, chills , coughing , shortness of breat or any other acute symptoms. He had recently had his insulin pump changed on 10/16. In the ER, his blood sugar was elevated and he was noted to have a low bicarb as well as ketone bodies in the urine. He was started on an insulin drip and will be admitted for further management of DKA. He was started on an insulin drip BMP monitoring according to DKA protocol. He was transitioned off insulin drip on 10/19 but went back into DKA and drip was restarted the night of 10/19. He was succesfully transitioned to subcutaneous insulin early in the am of 10/20. Anion gap was 8. Diet was advanced. Patient's insulin pump was noted to be nonfunctional in the hospital because the new pump was set to his old pump's settings. In coordination with family and cosmetology educator, the right settings were determined for the pump and once it was safely working, his sugars were well controlled and he was discharged in a stable condition. Qualifiers: Diabetes mellitus type: type 1 Diabetes mellitus complication detail: without coma Qualified Code(s): E10.10 - Type 1 diabetes mellitus with ketoacidosis without coma (2) Acute kidney injury Priority: Secondary Status: Acute (3) Leukocytosis Priority: Secondary Status: Acute Qualifiers: Qualified Code(s): D72.829 - Elevated white blood cell count, unspecified (4) Hyponatremia Priority: Secondary Status: Acute (5) Dehydration Priority: Secondary Status: Acute (6) DVT prophylaxis Priority: Secondary Status: Acute Hospital course: Mr. Ramirez is a 22 year old male - Time Spent with Patient Total time spent providing and/or coordinating discharge services: - Discharge Medications Home Medications: Subcutaneous Insulin Pump [T:Slim] 1 each MC AD 10/18/17 [History] Allergies/Adverse Reactions: 3 Allergy/AdvReac Type Severity Reaction Status Date / Time No Known Allergies Allergy Verified 10/18/17 15:00 Date of admission: 10/18/17 15:34 Primary care physician: Bernadette Blanca DO - Constitutional Vitals: Temp Pulse Resp BP Pulse Ox 98.7 F 99 16 141/93 97 10/20/17 11:34 10/20/17 11:34 10/20/17 11:34 10/20/17 11:34 10/20/17 11:34 Exam: Gen - Awake, alert, oriented x 3, no acute distress HEENT - NCAT, PERRLA, EOMI, hearing grossly intact, oropharynx benign CV - RRR, normal S1 and S2, no M/R/G, no BLE edema Resp - Normal WOB, CTAB, no W/R/R GI - Soft, NT/ND, no masses, normal bowel sounds, no HSP Skin - Warm, dry, no rashes/lesions/ulcers Psych - Normal mood and affect, no depression or anxiety - Head Head exam: Present: atraumatic, normocephalic - Eye Eye exam: Present: PERRL, conjuntiva pink, sclera anicteric Pupils: Present: PERRL - Neck Neck exam general surgery: Present: supple, trachea midline. Absent: lymphadenopathy - Respiratory Respiratory exam: Present: CTAB. Absent: accessory muscle use, rales, rhonchi, wheezes - Cardiovascular Cardiovascular exam: Present: RRR, +S1, +S2. Absent: diastolic murmur, gallop, rubs, systolic murmur - GI/Abdominal GI/Abdominal exam: Present: normal bowel sounds, soft, no peritoneal signs. Absent: distended, tenderness - Extremities Exam Extremities exam: Present: warm, radial pulses palpable and symmetrical. Absent : calf tenderness, cyanotic, pedal edema - Neurological Exam Neurological exam: Present: CN II-XII intact, oriented X3, no focal deficits. Absent: pronater drift, facial droop, speech deficit - Skin Skin exam: Present: dry, intact - Patient Status Disposition: Home, Self-Care Condition: Good - Discharge Instructions Instructions: Diabetes Mellitus Type 1 in Adults (DC) Follow Up With: Sloan Farley DO [Resident] - 10/27/17 3:15 pm
[2017-10-20] MEDS ORDERED: Insulin LISPRO 300 UNITS/3 ML VIAL SQ SCH (21:00)
== END 2017-10-20 14:57 | disposition home or self-care (01) ==
LOC: EMEROOARM 13:53 → 2NNU 15:34 → INTOOBSV 15:34 → 2NNU 17:29
PROVIDERS: ADMIT Internal Medicine; ATTEND Internal Medicine